=== PATIENT | female | born 1960 | race Caucasian/White ===

== ENCOUNTER 2016-05-02 20:42 | Emergency (ER) | payer OTHER ==
--- NOTE | ~2016-05-02 | CT98 ---
[facility] A Service of [facility] RADIOLOGY TEXT RESULTS PATIENT: TIMMY DENG LOCATION: [facility] : 56 UNIT #: [id number] AGE: [address]: Danelle Dias SEX: F ORDER DR: [id number] [facility] [address] [place], [place] [address] [id number] MR#: [id number] Acc #: [id number] NAME: TIMMY DENG. : 1960 SEX: F STUDY DATE/TIME: 05/02/2016 21:17 UNIT: [facility] ROOM: STUDY DESCRIPTION: CT Lumbar Spine Wo Cont Attending Physician: Danelle Dias Pa-C Ordering Physician: Danelle Dias Pa-C Primary Care Physician: Jatin Ga M.D. MEDICAL IMAGING REPORT This report is preliminary unless electronic signature is present EXAM Lumbar spine CT, 05/02. HISTORY Back pain radiating to the left lower extremity that started about 5 days ago after a fall. Patient reports she cannot urinate after her fall. Pain is currently 10/10. TECHNIQUE Axial noncontrast images were obtained through the lumbar spine. Multiplanar reformats were obtained. This CT exam was performed with one or more of the following radiation dose reduction techniques: automatic exposure control, adjustment of mA and/or kV according to patient size, and iterative reconstruction. COMPARISON STUDIES Comparison is made with a CT scan from 01/02/2014. FINDINGS There is mild grade 1 anterolisthesis of L3 on L4. This is unchanged. Alignment is otherwise normal. There are no acute fractures. At L5-S1, there is bilateral facet arthropathy and there is a broad-based posterior disc osteophyte complex. This results in guwf-gb-nuoqpehi bilateral foraminal narrowing slightly worse on the left relative to the right. No central stenosis is seen. At L4-5, there is facet arthropathy bilaterally. There is broad-based posterior disc bulge. This results in mild bilateral neural foraminal narrowing without significant central stenosis. [facility] A Service of [facility] RADIOLOGY TEXT RESULTS PATIENT: TIMMY DENG LOCATION: [facility] : 56 UNIT #: [id number] AGE: [address]: Danelle Dias SEX: F ORDER DR: At L3-4, there is hypertrophic bilateral facet arthropathy. Minimal disc bulging is noted. There is mild narrowing of both foramina. No significant central stenosis. At L2-3, the disc is normal. There is mild facet arthropathy. There is no central canal or neural foraminal stenosis. At L1-2, the disc is normal. There is no central canal or neural foraminal stenosis. At T12-L1 and T11-12, the discs are normal, as well. The T10-11 disc is also normal. IMPRESSION 1. Stable grade 1 mild spondylolisthesis at L3-4. Alignment is otherwise normal. There are no fractures. 2. Multilevel degenerative disc disease and facet arthropathy as detailed above. Findings are most severe at L5-S1, where there is a broad-based posterior disc osteophyte complex resulting in at least a moderate degree of bilateral neural foraminal narrowing, left greater than right. Findings could be better assessed with outpatient lumbar spine MRI if patient is a candidate. Dictated by... Wiliam Arguello Jr., M.D. THIS IS AN ELECTRONICALLY VERIFIED REPORT Wiliam Arguello Jr., M.D. at 05/05/2016 7:29 AM RUBEN/boyd TD: 05/03/2016 11:36 JOB #: [id number] MEDICAL IMAGING REPORT Page 1 of 1 COPY
[~2016-05-02 20:42] MED LIST: ALBUTEROL17 GM INH; AMBIEN CR PO; AMBIEN PO; COMBIVENT INH14.7 GM INH; COUMADIN PO; DURAGESIC1 EACH; HCTZ PO; HYDROCHLOROTH12.5 MG PO; KLONOPIN PO; LYRICA PO; LYRICA300 MG PO; OMEPRAZOLE40 M1 PO; OXYCODONE15 MG PO; PERCOCET10 PO; PHENERGAN PO; PHENERGAN PR; PHENERGAN25 MG PO; PROAIR HFA8.5 GM IN; ZANAFLEX PO; ZANAFLEX4 M1 PO; ZANTAC PO; ZYRTEC PO; [UNRECOGNIZED DRUG - REMARK]
[2016-05-02 21:41] LABS: URINE SOURCE CLEAN CATCH
[2016-05-02 21:50] LABS: URINE APPEARANCE CLEAR; URINE BILIRUBIN NEG (NEG); URINE BLOOD NEG (NEG); URINE COLOR YELLOW; URINE GLUCOSE NEG (NEG); URINE KETONE NEG (NEG); URINE LEUKOCYTE ESTERASE NEG (NEG); URINE NITRATE NEG (NEG); URINE PH 6.5 (5-8); URINE PROTEIN NEG (NEG); URINE SPECIFIC GRAVITY 1.007 (1.003-1.035); URINE UROBILINOGEN 0.2 MG/DL (NEG)
[2016-05-02 21:54] LABS: AMPHETAMINE NEG (NEG); BARBITURATES NEG (NEG); BENZODIAZEPINES POS (NEG); COCAINE NEG (NEG); MARIJUANA NEG (NEG); OPIATES POS (NEG); TRICYCLIC ANTIDEPRESSANTS NEG (NEG); U METHADONE NEG (NEG)
[2016-05-02 22:04] LABS: CULTURE INDICATED? NO
== END 2016-05-03 01:07 | disposition home or self-care (01) ==
LOC: CED 20:42
PROVIDERS: Physician Assistant Medical
DX: S39.012A Strain of muscle, fascia and tendon of lower back, initial encounter (principal); R51 Headache; I10 Essential (primary) hypertension; Z98.890 Other specified postprocedural states; Z98.51 Tubal ligation status; W01.0XXA Fall on same level from slipping, tripping and stumbling without subsequent striking against object, initial encounter
CPT/HCPCS: 72131; 80307; 81003; 96361; 96372; 96374; 96375; 99284; J1885; J2360; J2405

== ENCOUNTER → 2016-05-06 | Outpatient (CLI) | payer OTHER ==
--- NOTE | ~2016-05-06 | MR113 ---
[facility] A Service of [facility] RADIOLOGY TEXT RESULTS PATIENT: TIMMY DENG LOCATION: [facility] : 56 UNIT #: [id number] AGE: [address]: Jatin Ga MD SEX: F ORDER DR: [id number] [address] [address] [id number] O MR#: [id number] Acc #: [id number] NAME: TIMMY DENG : 1960 SEX: F STUDY DATE/TIME: 05/06/2016 16:00 UNIT: [facility] ROOM: STUDY DESCRIPTION: MR Lumbar Wo Contrast Attending Physician: Jatin Ga M.D. Referring Physician: Jatin Ga M.D. Ordering Physician: Jatin Ga M.D. Primary Care Physician: Jatin Ga M.D. MRI CENTER REPORT This report is preliminary unless electronic signature is present. EXAM MRI of the lumbar spine without contrast dated 05/06/2016. COMPARISON MRI lumbar spine without contrast dated 04/17/2006. HISTORY History of fall with increasing low back pain. Patient has left lower extremity radiculopathy with numbness in the left hip and buttock region along with the feet for the last 10 days. FINDINGS Multisequence, multiplanar imaging of the lumbar spine was obtained without contrast. Vertebral body heights are preserved. There is a 4 mm mild retrolisthesis of L4 with respect to L3. Conus terminates at L1. Signal of conus and cauda equina are unremarkable. There is mild prominence of posterior epidural fat pad, particularly at L4-5 and L5-S1 levels causing mild mass effect on the adjacent thecal sac. It is new when compared to the previous study from 10 years ago. Retroperitoneum demonstrates a cortical-based 6 mm increased T2-signal lesion in the posterior and inferior left kidney. It is partly exophytic and is incompletely characterized in the current study. It is relatively new since prior study. L1-2: Mild degenerative disc signal loss but otherwise unremarkable. L2-3: Suspicious small left foraminal to extraforaminal protrusion with mild left neural foraminal encroachment. No canal stenosis. L3-4: Concentric disc bulge with suspicious small bilateral foraminal to extraforaminal broad-based protrusions particularly in the left. Mild inferior bilateral neural foraminal narrowing is seen, particularly in the left. Severe bilateral facet hypertrophic changes and severe canal STS. [facility] A Service of [facility] RADIOLOGY TEXT RESULTS PATIENT: TIMMY DENG LOCATION: [facility] : 56 UNIT #: [id number] AGE: [address]: Jatin Ga MD SEX: F ORDER DR: stenosis is seen. L4-5: Concentric disc bulge with superimposed right-central to left-subarticular moderate broad-based protrusion/extrusion in the left subarticular region. It has slightly worsened when compared to the previous study, particularly in the left subarticular region. Severe canal stenosis, bvybnzpi-[id number]-[id number] left lateral recess stenosis and mild bilateral neural foraminal narrowing is seen with mild bilateral facet changes. Tiny, less than 5 mm increased T2-signal lesion is noted abutting the right ligamentum flavum in the right paramidline posterior aspect of the thecal sac. It could represent a small subligamentous synovial cyst. A slightly larger one measuring less than 5 mm is seen posterior to the left lamina at this level. Both are new when compared to the previous study. L5-S1: Concentric disc bulge with superimposed uyinn-wa-vshe subarticular moderate broad-based protrusion with mild impingement on the right S1 nerve root and borderline size canal. Mild bilateral neural foraminal narrowing is seen. IMPRESSION 1. Degenerative changes are at multiple levels, slightly worse in the interval when compared to the previous one from 10 years ago. 2. The canal stenosis due to disc and facet changes at L3-4 is much worse when compared to the prior study. 3. Previously noted grarw-ae-ltfd subarticular broad-based disc protrusion with prominence in the left central region at L4-5 has now worsened, with a more prominent left subarticular component suspicious for an extrusion superimposed on a protrusion. Severe canal stenosis and impingement of the left L5 nerve root in the left lateral recess are seen. Correlate clinically. 4. Next worst level is L5-S1, which is predominantly stable to minimally worse, if any. 5. 6 mm increased T2-signal lesion is noted in the posterior and inferior left kidney involving the cortex. It could represent a small cyst but is incompletely characterized on the current study. New since prior study. Dictated by... Josefina Lazcano M.D. THIS IS AN ELECTRONICALLY VERIFIED REPORT Josefina Lazcano M.D. at 05/08/2016 12:39 PM CPR/psc TD: 05/06/2016 22:[address] [facility]. [facility] A Service of [facility] RADIOLOGY TEXT RESULTS PATIENT: TIMMY DENG LOCATION: [facility] : 56 UNIT #: [id number] AGE: [address]: Jatin Ga MD SEX: F ORDER DR: SEAN #: [id number] MRI CENTER REPORT Page 1 of 1
== END | disposition home or self-care (01) ==
LOC: SMRI 15:41
DX: M54.16 Radiculopathy, lumbar region (principal); M48.06 Spinal stenosis, lumbar region; M51.26 Other intervertebral disc displacement, lumbar region; M51.36 Other intervertebral disc degeneration, lumbar region; M89.9 Disorder of bone, unspecified
CPT/HCPCS: 72148